=== PATIENT | male | born 2000 | race Caucasian/White ===

== ENCOUNTER 2025-09-27 14:48 | Outpatient (CLI) | payer BC, SELFPAY ==
--- NOTE | 2025-09-27 15:00 | CRLHL7_ITS ---
For Patients: As a result of the Century Cures Act, medical imaging exams and procedure reports are released immediately into your electronic medical record. You may view this report before your referring provider. If you have questions, please contact your health care provider. Indication: Persistent lymphadenopathy 2-3 months, right cervical lymph node swelling, no recent illness, no pain Technique: Grayscale and color Doppler ultrasound of the neck soft tissues performed bilaterally. Comparison: None Findings: Bilateral cervical lymph nodes are present measuring less than 1 cm in AP dimension and considered normal. Largest lymph node on the right measures 2.4 x 0.6 x 1.3 cm. Largest lymph node on the left measures 1.6 x 0.4 x 0.6 cm. No abnormal vascularity. Impression: Mildly reactive right cervical lymph node. Dictated by Owen Davison MD @ 09/27/2025 8:20:35 PM (Electronically Signed)
== END 2025-09-27 14:49 | disposition home or self-care (01) ==
LOC: US 14:50
PROVIDERS: PCP Physician Assistant Medical; Visit Provider Physician Assistant Medical
DX: R59.0 Localized enlarged lymph nodes (principal)
CPT/HCPCS: 76536